=== PATIENT | female | born 1960 | race Caucasian/White ===

== ENCOUNTER 2020-11-16 08:56 | Emergency (ER) | payer BC, OTHER ==
[~2020-11-16] VITALS: Ht 157.5 cm; Wt 93.6 kg
[~2020-11-16 08:56] MED LIST: DICYCLOMINE HCL10 MG PO; PROMETHAZINE HC25 M1 PO
[2020-11-16] MEDS ORDERED: SODIUM CHLORIDE 0.9% 1000ML 1,000 ML ONE (09:19)
[2020-11-16] MEDS ORDERED: FAMOTIDINE 20 MG/2 ML VIAL IV ONE (09:19)
[2020-11-16] MEDS ORDERED: LASIX40 MG PO (09:20)
[2020-11-16] MEDS ORDERED: LISINOPRIL10 MG PO (09:20)
[2020-11-16] MEDS ORDERED: ASPIRIN EC81 MG PO (09:20)
[2020-11-16] MEDS ORDERED: IBGARD90 MG (09:20)
[2020-11-16] MEDS ORDERED: FAMOTIDINE 20 MG/2 ML VIAL IV STA (09:20)
[2020-11-16] MEDS ORDERED: CILOSTAZOL100 MG PO (09:20)
[2020-11-16] MEDS ORDERED: VIBERZI75 MG (09:20)
[2020-11-16] MEDS ORDERED: ATORVASTATIN CA20 MG PO (09:20)
[2020-11-16] MEDS ORDERED: PANTOPRAZOLE SO40 MG PO (09:20)
[2020-11-16] MEDS ORDERED: KETOROLAC TROMETHAMINE 30 MG/ML VIAL IV STA (09:24)
[2020-11-16] MEDS ORDERED: SODIUM CHLORIDE 0.9% 1000ML 1,000 ML IV SCH (09:30)
[2020-11-16] MEDS ORDERED: KETOROLAC TROMETHAMINE 30 MG/ML VIAL ONE (09:54)
[2020-11-16] MEDS ORDERED: ZOFRAN4 MG PO (11:37)
[2020-11-16] MEDS ORDERED: TYLENOL # 31 EA PO (11:38)
[2020-11-16 11:56] VITALS: BP 102/57
== END 2020-11-16 11:55 | disposition home or self-care (01) ==
LOC: FSED 09:30
DX: R10.11 Right upper quadrant pain (principal); K57.90 Diverticulosis of intestine, part unspecified, without perforation or abscess without bleeding
CPT/HCPCS: 74176; 76705; 80048; 80076; 81003; 82553; 84484; 85025; 93005; 96374; 96375; 99284; J1885; J7030